=== PATIENT | male | born 1945 | race Caucasian/White ===

== ENCOUNTER 2017-07-31 10:10 | Observation (INO) | payer OTHER ==
[2017-07-31] MEDS ORDERED: FAMOTIDINE 20 MG/2 ML VIAL IV ONE (10:42)
[2017-07-31] MEDS ORDERED: NA CHLORIDE 0.9% 1,000 ML ONE (10:42)
--- NOTE | 2017-07-31 11:03 | RAD REPORT ---
EXAM DESCRIPTION: CT - Head Brain Wo Cont - 07/31/2017 10:47 am CLINICAL HISTORY: Syncope COMPARISON: None. TECHNIQUE: All CT scans are performed using dose optimization technique as appropriate and may inclu de automated exposure control or mA/KV adjustment according to patient size. FINDINGS: No intracranial hemorrhage, hydrocephalus or extra-axial fluid collection.Mild generalized brain atrophy is present with moderate periventricular and deep white matter chronic microvascular i schemic changes.No areas of brain edema or evidence of midline shift. The paranasal sinuses and mastoids are clear. The calvarium is intact. The left vertebral artery is c alcified. IMPRESSION: No acute intracranial abnormality.
--- NOTE | 2017-07-31 11:05 | RAD REPORT ---
EXAM DESCRIPTION: RAD - Chest Single View - 07/31/2017 10:48 am CLINICAL HISTORY: Syncope COMPARISON: 09/27/2013 FINDINGS: Portable technique limits examination quality. The lungs are mildly emphysematous but grossly clear. The heart is normal in size. No displaced fract ures. IMPRESSION: No acute intrathoracic process suspected.
--- NOTE | 2017-07-31 11:18 | EDPHYS ---
Physician Documentation [facility] Name: Ramses Carmona Age: 71 yrs Sex: Male : 1945 Arrival Date: 07/31/2017 Time: 10:12 Bed 2 Private MD: ED Physician Dk Wagoner HPI: 07/31 10:21 This 71 yrs old Male presents to ER via EMS with complaints of Near Syncope. chasidy 10:21 The patient has experienced near-syncope, almost passed out, felt dizzy, felt faint, chasidy felt generally weak. Onset: The symptoms/episode began/occurred this morning, today. Duration: The patient has had multiple episodes, that last 30 second(s). Context: the episode(s) was witnessed, by no one. Associated injury: The patient did not suffer any apparent associated injury. Associated signs and symptoms: The patient has no apparent associated signs or symptoms. The patient has not experienced similar symptoms in the past. Historical: - Allergies: 10:15 No Known Allergies; aa5 - PMHx: 10:16 Anxiety; Depression; Cancer; Myocardial infarction; aa5 - PSHx: 10:15 cataracts; Hernia repair; left foot surgery; cancer removals; aa5 - Immunization history:: Adult Immunizations unknown. - Family history:: not pertinent. - Social history:: Smoking status: Patient/guardian denies using tobacco. ROS: 10:21 Constitutional: Negative for fever, chills, and weight loss, Eyes: Negative for injury, chasidy pain, redness, and discharge, ENT: Negative for injury, pain, and discharge, Neck: Negative for injury, pain, and swelling, Cardiovascular: Negative for chest pain, palpitations, and edema, Respiratory: Negative for shortness of breath, cough, wheezing, and pleuritic chest pain, Abdomen/GI: Negative for abdominal pain, nausea, vomiting, diarrhea, and constipation, Back: Negative for injury and pain, : Negative for injury, bleeding, discharge, and swelling, MS/Extremity: Negative for injury and deformity, Skin: Negative for injury, rash, and discoloration, Psych: Negative for depression, anxiety, suicide ideation, homicidal ideation, and hallucinations, Allergy/Immunology: Negative for hives, rash, and allergies, Endocrine: Negative for neck swelling, polydipsia, polyuria, polyphagia, and marked weight changes, Hematologic/Lymphatic: Negative for swollen nodes, abnormal bleeding, and unusual bruising. 10:21 Neuro: Positive for near syncope, weakness. Exam: 10:21 Constitutional: This is a well developed, well nourished patient who is awake, alert, chasidy and in no acute distress. Head/Face: Normocephalic, atraumatic. Eyes: Pupils equal round and reactive to light, extra-ocular motions intact. Lids and lashes normal. Conjunctiva and sclera are non-icteric and not injected. Cornea within normal limits. Periorbital areas with no swelling, redness, or edema. ENT: Nares patent. No nasal discharge, no septal abnormalities noted. Tympanic membranes are normal and external auditory canals are clear. Oropharynx with no redness, swelling, or masses, exudates, or evidence of obstruction, uvula midline. Mucous membranes moist. Neck: Trachea midline, no thyromegaly or masses palpated, and no cervical lymphadenopathy. Supple, full range of motion without nuchal rigidity, or vertebral point tenderness. No Meningismus. Chest/axilla: Normal chest wall appearance and motion. Nontender with no deformity. No lesions are appreciated. Cardiovascular: Regular rate and rhythm with a normal S1 and S2. No gallops, murmurs, or rubs. Normal PMI, no JVD. No pulse deficits. Respiratory: Lungs have equal breath sounds bilaterally, clear to auscultation and percussion. No rales, rhonchi or wheezes noted. No increased work of breathing, no retractions or nasal flaring. Abdomen/GI: Soft, non-tender, with normal bowel sounds. No distension or tympany. No guarding or rebound. No evidence of tenderness throughout. Back: No spinal tenderness. No costovertebral tenderness. Full range of motion. Male : Normal genitalia with no discharge or lesions. Skin: Warm, dry with normal turgor. Normal color with no rashes, no lesions, and no evidence of cellulitis. MS/ Extremity: Pulses equal, no cyanosis. Neurovascular intact. Full, normal range of motion. Neuro: Awake and alert, GCS 15, oriented to person, place, time, and situation. Cranial nerves II-XII grossly intact. Motor strength 5/5 in all extremities. Sensory grossly intact. Cerebellar exam normal. Normal gait. Psych: Awake, alert, with orientation to person, place and time. Behavior, mood, and affect are within normal limits. Vital Signs: 10:14 BP 143 / 97; Pulse 117; Resp 20 S; Pulse Ox 96% on R/A; Pain 0/10; aa5 11:08 BP 121 / 88; Pulse 110 MON; Resp 17 S; Pulse Ox 95% on R/A; Pain 0/10; sg 13:00 BP 120 / 82; Pulse 100 MON; Resp 19 S; Temp 98.0; Pulse Ox 98% on R/A; Pain 0/10; sg 11:08 Sinus tachycardia sg MDM: 10:12 Patient medically screened. [facility] 10:24 Data reviewed: vital signs, nurses notes, lab test result(s), EKG, radiologic studies, [facility] CT scan, plain films. 07/31 10:21 Order name: Basic Metabolic Panel; Complete Time: 13:13 [facility] 07/31 10:21 Order name: BNP; Complete Time: 12:24 [facility] 07/31 10:21 Order name: CBC with Diff [facility] 07/31 10:21 Order name: Ckmb; Complete Time: 13:13 [facility] 07/31 10:21 Order name: CPK; Complete Time: 13:13 [facility] 07/31 10:21 Order name: LFT's; Complete Time: 13:13 [facility] 07/31 10:21 Order name: Magnesium; Complete Time: 13:13 [facility] 07/31 10:21 Order name: PT-INR; Complete Time: 11:47 [facility] 07/31 10:21 Order name: Ptt, Activated; Complete Time: 11:47 [facility] 07/31 10:21 Order name: Troponin (emerg Dept Use Only); Complete Time: 12:24 [facility] 07/31 10:21 Order name: Lipase; Complete Time: 13:13 [facility] 07/31 10:21 Order name: Urine Culture [facility] 07/31 10:21 Order name: Type And Screen; Complete Time: 13:13 [facility] 07/31 11:17 Order name: D-Dimer; Complete Time: 13:13 [facility] 07/31 10:21 Order name: XRAY Chest (1 view); Complete Time: 11:16 [facility] 07/31 10:21 Order name: EKG; Complete Time: 10:22 [facility] 07/31 10:21 Order name: Cardiac monitoring; Complete Time: 11:08 [facility] 07/31 10:21 Order name: EKG - Nurse/Tech; Complete Time: 11:08 [facility] 07/31 10:21 Order name: IV Saline Lock; Complete Time: 11:08 [facility] 07/31 10:21 Order name: Labs collected and sent; Complete Time: 11:08 [facility] 07/31 10:21 Order name: CT Head Brain wo Cont; Complete Time: 11:16 [facility] 07/31 11:16 Order name: US Carotid Artery Bilateral [facility] 07/31 11:16 Order name: Echo w/ Doppler [facility] 07/31 11:24 Order name: CONS Physician Consult [facility] 07/31 12:15 Order name: US; Complete Time: 12:24 [facility] 07/31 12:25 Order name: US Extremity Venous W Compression Faisal [facility] 07/31 12:25 Order name: CT Chest For PE Angio [facility] 07/31 12:34 Order name: ABO/RH no charge; Complete Time: 13:13 [facility] 07/31 10:21 Order name: O2 Per Protocol; Complete Time: 11:08 [facility] 07/31 10:21 Order name: O2 Sat Monitoring; Complete Time: 11:08 [facility] 07/31 10:21 Order name: Urine Dipstick-Ancillary (obtain specimen); Complete Time: 20:11 [facility] Administered Medications: 11:00 Drug: Pepcid 20 mg Route: IVP; Site: left antecubital; 12:00 Follow up: Response: No adverse reaction 11:08 Drug: NS 0.9% 1000 ml Route: IV; Rate: 125 ml/hr; Site: left antecubital; 13:00 Follow up: IV Status: Infusion continued upon admission sg Disposition: 07/31/17 11:18 Hospitalization ordered by January Li for Inpatient Admission. Preliminary diagnosis are Syncope and collapse, Weakness. - Bed requested for Telemetry/MedSurg (Inpatient). - Status is Inpatient Admission. sg - Condition is Fair. - Problem is new. - Symptoms have improved. UTI on Admission? No Signatures: Dispatcher [employer] Becka Espinoza RN RN dw Gay, Steven RN RN Dk Ramsey MD MD cha Calderon, Audri RN RN aa5 Corrections: (The following items were deleted from the chart) 12:48 11:18 Hospitalization Ordered by January Li MD for Inpatient Admission. Preliminary dw diagnosis is Syncope and collapse; Weakness. Bed requested for Telemetry/MedSurg (Inpatient). Status is Inpatient Admission. Condition is Fair. Problem is new. Symptoms have improved. UTI on Admission? No. chasidy 13:26 12:48 07/31/2017 11:18 Hospitalization Ordered by January Li MD for Inpatient sg Admission. Preliminary diagnosis is Syncope and collapse; Weakness. Bed requested for Telemetry/MedSurg (Inpatient). Status is Inpatient Admission. Condition is Fair. Problem is new. Symptoms have improved. UTI on Admission? No. dw
--- NOTE | 2017-07-31 11:18 | ER ---
Nurse's Notes [facility] Name: Rasmes Carmoan Age: 71 yrs Sex: Male : 1945 Arrival Date: 07/31/2017 Time: 10:12 Bed 2 Private MD: Diagnosis: Syncope and collapse;Weakness Presentation: 07/31 10:12 Presenting complaint: Patient states: 2 near syncopal episodes today. Pt states "I got aa5 really lightheaded and broke out in a sweat". Pt denies pain. Transition of care: patient was not received from another setting of care. Onset of symptoms was July 31, 2017. Initial Sepsis Screen: Does the patient meet any 2 criteria? HR > 90 bpm. Does the patient have a suspected source of infection? No. Patient's initial sepsis screen is negative. Care prior to arrival: IV initiated. 22 GA, in the left antecubital area, Glucose check: 185. 10:12 Method Of Arrival: [facility] aa5 10:12 Acuity: ADOLFO 2 aa5 Historical: - Allergies: 10:15 No Known Allergies; aa5 - PMHx: 10:16 Anxiety; Depression; Cancer; Myocardial infarction; aa5 - PSHx: 10:15 cataracts; Hernia repair; left foot surgery; cancer removals; aa5 - Immunization history:: Adult Immunizations unknown. - Family history:: not pertinent. - Social history:: Smoking status: Patient/guardian denies using tobacco. Screenin:00 Abuse screen: Denies threats or abuse. Denies injuries from another. Nutritional sg screening: No deficits noted. Tuberculosis screening: No symptoms or risk factors identified. Never had TB. Fall Risk None identified. Assessment: 10:30 General: Appears in no apparent distress. comfortable, well groomed, well developed, sg well nourished, Behavior is calm, cooperative, appropriate for age. Pain: Denies pain. Neuro: Level of Consciousness is awake, alert, obeys commands, Oriented to person, place, time, situation, [employer] are equal bilaterally Moves all extremities. Speech is normal, Facial symmetry appears normal. Neuro: Reports weakness. Cardiovascular: Heart tones S1 S2 present Capillary refill is brisk in bilateral fingers Patient's skin is warm and dry. Chest pain is denied. Respiratory: Airway is patent Respiratory effort is even, unlabored, Respiratory pattern is regular, symmetrical. GI: No signs and/or symptoms were reported involving the gastrointestinal system. : No signs and/or symptoms were reported regarding the genitourinary system. EENT: No signs and/or symptoms were reported regarding the EENT system. Derm: Skin is pink, warm \\T\\ dry. Musculoskeletal: No signs and/or symptoms reported regarding the musculoskeletal system. 12:07 Reassessment: Patient appears in no apparent distress at this time. Patient and/or sg family updated on plan of care and expected duration. Pain level reassessed. Patient is alert, oriented x 3, equal unlabored respirations, skin warm/dry/pink. ECHO at bedside for procedure at this time. Vital Signs: 10:14 BP 143 / 97; Pulse 117; Resp 20 S; Pulse Ox 96% on R/A; Pain 0/10; aa5 11:08 BP 121 / 88; Pulse 110 MON; Resp 17 S; Pulse Ox 95% on R/A; Pain 0/10; sg 13:00 BP 120 / 82; Pulse 100 MON; Resp 19 S; Temp 98.0; Pulse Ox 98% on R/A; Pain 0/10; sg 11:08 Sinus tachycardia sg Vitals: 11:08 Cardiac Rhythm Assessment Sinus tach. sg ED Course: 10:10 Patient has correct armband on for positive identification. Bed in low position. Call sg light in reach. Side rails up X2. bottom man on. Pulse ox on. NIBP on. Warm blanket given. Head of bed elevated. 10:12 Patient arrived in ED. aa5 10:12 Dk Wagoner MD is Attending Physician. [facility] 10:12 Arm band placed on. aa5 10:14 Triage completed. aa5 10:29 Tree Schneider, RAHEEL is Primary Nurse. sg 10:34 EKG done, by [employer]. reviewed by Dk Wagoner MD. dt2 10:46 X-ray completed. Patient tolerated procedure well. CT completed. Patient tolerated sw procedure well. Patient moved to radiology via stretcher. Patient moved back from CT. Patient moved back from radiology. 10:47 XRAY Chest (1 view) In Process Unspecified. EDMS 10:47 CT Head Brain wo Cont In Process Unspecified. EDMS 11:17 January Li MD is Hospitalizing Provider. [facility] 11:30 Ultrasound completed. aa4 12:[address] vr 13:10 No provider procedures requiring assistance completed. Patient admitted, IV remains in sg place. intact, No redness/swelling at site. 13:11 CT completed. Patient moved back from CT. vr Administered Medications: 11:00 Drug: Pepcid 20 mg Route: IVP; Site: left antecubital; sg 12:00 Follow up: Response: No adverse reaction sg 11:08 Drug: NS 0.9% 1000 ml Route: IV; Rate: 125 ml/hr; Site: left antecubital; sg 13:00 Follow up: IV Status: Infusion continued upon admission sg Outcome: 11:18 Decision to Hospitalize by Provider. chasidy 13:10 Admitted to Tele accompanied by tech, via stretcher, room 416, with chart, Report sg called to Lary PICKERING 13:10 Condition: stable 13:10 Instructed on the need for admit, safety practices, Demonstrated understanding of instructions. 13:26 Patient left the ED. sg Signatures: Dispatcher [employer] EDMS Tree Schneider, RN RN Dk Wagoner MD MD cha Frazier, Amanda aa4 Arabella Ortiz, RN RN aa5 Cadence Siegel Shannon sw Teague, Danielle dtMars
[2017-07-31 11:23] LABS: Absolute Lymphocytes (CBC) 0.4 K/uL (0.7-4.9); Absolute Monocytes 0.6 K/uL (0.1-1.3); Absolute Neutrophil 10.8 K/uL (1.8-8.0); Basophils % 0.3 % (0-1.3); Eosinophils % 1.4 % (0-4.4); Hematocrit 50.4 % (39.6-49.0); Lymphocytes % 3.5 % (15.3-44.8); MCH 30.3 pg (27.0-35.0); MCV 89.2 fL (80-100); MPV 9.5 fL (7.6-11.3); Monocytes % 5.2 % (3.3-12.3); RBC Red Blood Cell Count 5.65 M/uL (4.33-5.43)
[2017-07-31 11:29] LABS: Protime INR 0.94
[2017-07-31 11:46] LABS: Potassium 4.1 mEq/L (3.6-5.0)
[2017-07-31 11:52] LABS: Albumin 4.4 g/dL (3.2-5.5); Bilirubin Direct 0.1 mg/dL (0-0.2); Bilirubin Total 0.8 mg/dL (0.3-1.2); Magnesium 1.8 mg/dL (1.8-2.5); Protein, Total 7.9 g/dL (6.0-8.3)
[2017-07-31] MEDS ORDERED: NA CHLORIDE 0.9% 1,000 ML IV SCH (12:00)
--- NOTE | 2017-07-31 12:14 | RAD REPORT ---
EXAM DESCRIPTION: DEYANIRA - ABBY - 07/31/2017 11:58 am CLINICAL HISTORY: Dizziness, syncope COMPARISON: None. TECHNIQUE: Real-time sonographic evaluation of both carotid systems was performed. Doppler interroga tion was performed with waveform tracing bilaterally. FINDINGS: Normal high resistance waveforms are noted in both external carotid arteries. The common c arotid arteries and internal carotid arteries show normal low resistance waveforms. Mild, predominant soft plaquing is present involving both carotid bulbs. Peak systolic and end diasto lic velocity values and the ICA/CCA ratios are in the non-hemodynamically significant range. Antegrade flow seen in both vertebral arteries. IMPRESSION: Mild, predominately soft plaquing is present in both carotid bulbs. No evidence of a hemodynamically significant stenosis.
--- NOTE | 2017-07-31 12:40 | ECHO ---
HEIGHT: 5ft 10 in WEIGHT: 185 lb oz DATE OF STUDY: 07/31/[address]: Dk Wagoner MD 2-DIMENSIONAL: YES M.MODE: YES DOPPLER: YES COLOR FLOW: YES TDS: NO PORTABLE: NO DEFINITY: NO BUBBLE STUDY: NO DIAGNOSIS: SYNCOPE CARDIAC HISTORY: CATHERIZATION: YES SURGERY: NO PROSTHETIC VALVE: NO PACEMAKER: NO MEASUREMENTS (cm) DIASTOLIC (NORMALS) SYSTOLIC (NORMALS) IVSd 1.0 (0.6-1.2) LA Diam 3.3 (1.9-4.0) LVEF 68% LVIDd 4.1 (3.5-5.7) LVIDs 2.5 (2.0-3.5) %FS 38% LVPWd 0.8 (0.6-1.2) Ao Diam 3.0 (2.0-3.7) 2 DIMENSIONAL ASSESSMENT: RIGHT ATRIUM: NORMAL LEFT ATRIUM: NORMAL RIGHT VENTRICLE: NORMAL LEFT VENTRICLE: NORMAL TRICUSPID VALVE: NORMAL MITRAL VALVE: NORMAL PULMONIC VALVE: NORMAL AORTIC VALVE: NORMAL PERICARDIAL EFFUSION: NONE AORTIC ROOT: NORMAL LEFT VENTRICULAR WALL MOTION: NORMAL. DOPPLER/COLOR FLOW: TRACE OF TRICUSPID REGURGITATION. NORMAL RIGHT VENTRICULAR SYSTOLIC PRESSURE. COMMENTS: NORMAL 2D ECHO. TRACE OF TRICUSPID REGURGITATION. TECHNOLOGIST: ELMA WESLEY
[2017-07-31 12:52] LABS: CKMB Creatine Kinase MB 4.5 ng/ml (0.3-4.0)
--- NOTE | 2017-07-31 13:31 | RAD REPORT ---
EXAM DESCRIPTION: CT - Chest For Pe Angio - 07/31/2017 1:10 pm CLINICAL HISTORY: Shortness of breath, syncope COMPARISON: Chest films same date TECHNIQUE: Dynamically enhanced 3 mm thick images of the chest were obtained during administration o f approximately 150mL Isovue 370 IV contrast. Coronal and oblique reconstruction images were generate d and reviewed. Exam utilizes a protocol to evaluate the pulmonary arterial tree. All CT scans are performed using dose optimization technique as appropriate and may include automated exposure control or mA/KV adjustment according to patient size. FINDINGS: No pulmonary emboli are identified. The aorta as imaged shows no acute or suspicious finding. No pericardial thickening or effusion. No infiltrate or mass in the lung parenchyma. No pleural effusion or pleural thickening. Interstitial thickening is favored to be fibrotic change. There is some minimal dependent atelectasis in each pos terior lung field. No mediastinal or hilar suspicious masses. No chest wall masses or abnormal axillary lymphadenopathy. There is a large amount of fluid filling the entirety of the esophagus. Patient has a large amount o f fluid within a partially imaged stomach. From this examination and cannot be determined patient ing ested a large amount of liquid or has a gastro paresis. The esophageal fluid likely indicates reflux. The patient has a small hiatal hernia. IMPRESSION: No pulmonary emboli identified. Fibrotic lung change with no acute lung parenchymal process. Fluid-filled stomach with a large amount of fluid filling the esophagus. The esophageal fluid is like ly reflux. Gastric fluid could indicate an large volume intake of fluid or gastro paresis.
[2017-07-31 13:49] LABS: Blood Morphology Comment NOT SEEN (NOT SEEN); Platelet Estimate ADEQ; Urine White Blood Cell Casts OK
--- NOTE | 2017-07-31 15:00 | P.SSS ---
Patient History Date of Service: 07/31/17 Primary Care Provider: GIULIANA marcelo Reason for admission: Near Syncope History of Present Illness: 71 y/o M with significant PMHx of Anxiety, CAD, depression, ? DM who presented to the ED with complains of having near syncopal episode. Pt stated he woke up at 3AM at night time and had an upset stomach. He then went to use the bathroom and started feeling dizzy and had sweats. He Also had about of diarrhea while in the bathroom. He said he felt like something was really wrong. Pt did state he had a loaded Baked potatoe with evans, with and Friday. He states he usually eats healthy food but yesterday was the first time he ate so much sugar. Pt denies having any Fever, Chills, Sob, Chest pain, or constipation. Pt has no other complains to offer and state he feels much better now. Allergies No Known Allergies Allergy (Verified 07/31/17 14:41) - Past Medical/Surgical History Has patient received pneumonia vaccine in the past: Yes -: ANXIETY -: DEPRESSION -: NON-HODKINS Lymphoma -: NE -: Cataracts -: hernia repair - Social History Smoking Status: Never smoker Alcohol use: No CD- Drugs: No Caffeine use: Yes Place of Residence: Home Review of Systems General: Unremarkable Physical Examination - Vital Signs Temperature: 98.5 F Blood Pressure: 100/77 Pulse: 105 Respirations: 18 Pulse Ox (%): 96 - Physical Exam General: Alert, In no apparent distress HEENT: Atraumatic, PERRLA, Mucous membr. moist/pink, EOMI, Sclerae nonicteric Neck: Supple, 2+ carotid pulse no bruit, No LAD, Without JVD or thyroid abnormality Respiratory: Clear to auscultation bilaterally, Normal air movement Cardiovascular: Regular rate/rhythm, Normal S1 S2 Gastrointestinal: Normal bowel sounds, No tenderness Musculoskeletal: No tenderness Integumentary: No rashes Neurological: Normal gait, Normal speech, Normal strength at 5/5 x4 extr, Normal tone, Normal affect Lymphatics: No axilla or inguinal lymphadenopathy - Studies Laboratory Data (last 24 hrs) 07/31/17 11:00: PT 11.1, INR 0.94, APTT 28.0 07/31/17 11:00: WBC 12.1 H, Hgb 17.1, Hct 50.4 H, Plt Count 145 L 07/31/17 11:00: B-Natriuretic Peptide 30 07/31/17 11:00: Sodium 140, Potassium 4.1, BUN 20, Creatinine 0.99, Glucose 154 H, Magnesium 1.8, Total Bilirubin 0.8, AST 24, ALT 19, Alkaline Phosphatase 57, Lipase 23 - Diagnosis (Problem(s)) (1) Near syncope Current Visit: Yes Status: Acute Plan: Most likely secondary to Orthostatic hypotension and Elevated BS. -Head CT negative -ECHO WNL -Carotid U/S With mild plaguing nothing acute -No other complains to offer. -Walk test WNL -Orthostatic hypotension due to dehydration. -IV fluids and then DC home -F/U with PCP (2) Elevated d-dimer Current Visit: Yes Status: Acute Plan: Elevated Ddimer -CTA negative -Gastroparesis noted. - (3) CAD (coronary artery disease) Current Visit: Yes Status: Chronic Qualifiers: Coronary Disease-Associated Artery/Lesion type: [place] artery [place] vs. transplanted heart: [place] heart Associated angina: without angina Qualified Code(s): I25.10 - Atherosclerotic heart disease of [place] coronary artery without angina pectoris (4) Anxiety Current Visit: Yes Status: Chronic - Disposition Disposition: ROUTINE DISCHARGE Condition: GOOD Patient Discharge Instructions: Please f/u with PCP in 1 to 2 week post discharge. No new medication Diet: Regular Activity: Ad juana
[2017-07-31] MEDS ORDERED: MAGNES/ALUMIN/SIMET 30ML UCUP PO ONE (16:00)
--- NOTE | 2017-08-01 10:33 | EKG ---
Test Date: 2017-07-31 Test Time: 10:10:49 Integration Project Manager: BALJINDER MEASUREMENT RESULTS: Intervals: Rate: 119 CA: 170 QRSD: 82 QT: 316 QTc: 444 [place]: P: 15 CA: 170 QRS: -22 T: 35 INTERPRETIVE STATEMENTS: Sinus tachycardia Inferior infarct, age undetermined Possible Anterior infarct, age undetermined Abnormal ECG Compared to ECG 09/27/2013 23:06:21 Sinus rhythm no longer present Myocardial infarct finding still present Electronically Signed On 08-01-17 10:27:40 CDT by [place]
== END 2017-07-31 15:40 | disposition home or self-care (01) ==
LOC: ER 10:10 → ERHOLD 11:20 → INTOOBSV 11:20 → 4TH 13:16
PROVIDERS: ADMIT Family Medicine; ATTEND Family Medicine
DX: R55 Syncope and collapse (principal); F41.8 Other specified anxiety disorders; I25.10 Atherosclerotic heart disease of native coronary artery without angina pectoris; Z85.72 Personal history of non-Hodgkin lymphomas; I25.2 Old myocardial infarction; R79.1 Abnormal coagulation profile
CPT/HCPCS: 36415; 70450; 71045; 71275; 80048; 80076; 82550; 82553; 83690; 83735; 83880; 84484; 85025; 85379; 85610; 85730; 86850; 86900; 86901; 93005; 93306; 93880; 96361; 96374; 99285; G0378; J7030 ×2; Q9967